=== PATIENT | female | born 1990 | race Caucasian/White ===

== ENCOUNTER 2021-07-22 05:15 | Inpatient (IN) | payer OTHER, SELFPAY ==
[2021-07-22] VITALS (174 sets, daily range): BP systolic 39–163; BP diastolic 24–92; PULSE 34–120; RESP 16–18; TEMP 36.2–37.1; O2SAT 92–100; BMI 29.5
--- NOTE | 2021-07-22 05:15 | LDADM ---
This patient, Osiris Jurado, was admitted to Labor/Delivery/Recovery 108 on 07/22/21 at 05:15. Plans for labor, pain management and were discussed with patient. Patient/family oriented to hospital policies and general routines including ID bracelet, bed and alarms, visiting hours, pain management, procedures, bathroom and other care routines, personal items, smoking policy, room service/diet and guest tray routines, security routines, and visiting hours. Patient/Family are encouraged to report perceived risks to care and to ask questions if they do not understand what they are told or what they should do. See OBIX for further documentation.
[2021-07-22 06:11] LABS: Basophils Percent Auto 0.3 % (0.2-1.2); Eosinophils Percent Auto 0.4 % (0-4.4); Hematocrit 33.2 % (37.0-47.0); Hemoglobin 11.4 g/dL (12.0-15.0); Immature Granulocyte Absolute 0.03 K/mm3 (0.00-0.031); Immature Granulocyte Percent A 0.4 % (0-0.5); Lymphocytes Absolute Auto 1.76 K/mm3 (0.9-3.2); Lymphocytes Percent Auto 23.8 % (18.3-44.2); Mean Corpuscular HGB Conc 34.3 g/dl (32-36); Mean Corpuscular Hemoglobin 32.7 pg (26-34); Mean Corpuscular Volume 95.1 fl (80-100); Mean Platelet Volume 11.3 fl (7.4-10.4); Monocytes Absolute Auto 0.6 K/mm3 (0.1-0.6); Monocytes Percent Auto 8.1 % (2.6-8.5); Platelet Count Result 220 k/mm3 (150-375); Red Blood Count 3.49 M/mm3 (4.2-5.4); Red Cell Distribution Width 14.2 % (11.5-14.5); White Blood Count 7.4 K/mm3 (4.5-10.0)
--- NOTE | 2021-07-22 06:11 | WPDANESEPP ---
Anes - Eval Pre Procedure Procedure: labor epidural Date/Time: 07/22/21 06:11 Surgeon: crispin Pre Op Diagnosis: IOL Patient Data Age: 30 Gender: F Height: Weight: Last Vital Signs Pulse 86 07/22/21 06:01 BP 110/69 07/22/21 06:01 Allergies Allergy/AdvReac Type Severity Reaction Status Date / Time amoxicillin [From Augmentin] Allergy Hives Verified 06/30/21 12:52 clavulanic acid Allergy Hives Verified 06/30/21 12:52 [From Augmentin] levofloxacin [From Levaquin] Allergy Hives Verified 06/30/21 12:52 Penicillins Allergy Hives Verified 06/30/21 12:52 Laboratory Tests 07/22/21 07/22/21 05:54 05:54 WBC Pending RBC Pending Hgb Pending Hct Pending MCV Pending MCH Pending MCHC Pending RDW Pending Plt Count Pending MPV Pending Immature Gran % (Auto) Pending Neut % (Auto) Pending Lymph % (Auto) Pending [place] % (Auto) Pending Eos % (Auto) Pending Baso % (Auto) Pending Lymph # (Auto) Pending [place] # (Auto) Pending Eos # (Auto) Pending Baso # (Auto) Pending Abs Immat Gran (auto) Pending Absolute Neuts (auto) Pending Absolute Nucleated RBC Pending Nucleated RBC % Pending RPR Pending Patient hx anesthesia problems: none Family hx anesthesia problems: none Results Review: All pre-operative results and documents have been reviewed as part of the pre-operative evaluation. [facility] Family History Family History (Updated 06/30/21 @ 12:53 by Alex Izaguirre RN) Other No pertinent family history Social History Social History Smoking status: Never smoker Second hand tobacco smoke exposure: No Substance use: never Spiritual care concerns: No Exam Day of Procedure 07/22/21 06:11
[2021-07-22] MEDS: OXYTOCIN 30 UNITS/NS 500 ML 30 UNITS/500 ML BAG 6 UNITS IV CONT (06:50)
[2021-07-22] MEDS: LACTATED RINGERS 1,000 ML 125 ML IV CONT ×2 (06:50→11:34)
--- NOTE | 2021-07-22 06:55 | WPDOBADMIT ---
Obstetrics - Admit Note Admission Note: record reviewed. Additions to the history and/or subsequent changes in the physical findings follow. 30 y/o G1 at 39 1/7 weeks here for induction of labor. AVSS NST reactive TOCO: rare contractions ABD soft, nontender, gravid, vertex EXT nontender Cervix 3-4/50/-2. AROM with clear fluid. A: IUP at term with favorable cervix. Desires induction of labor. P: Oxytocin. Anticipate .
[2021-07-22 11:17] LABS: Rapid Plasma Reagin Non-Reactive (NonReactive)
--- NOTE | 2021-07-22 11:42 | P.PNAN_ITS ---
Anes - Eval Pre Procedure Date/Time: 07/22/21 11:42 Pre Op Diagnosis: IOL Patient Data Age: 30 Gender: F Height: Weight: Last Vital Signs Temp 98.2 F 07/22/21 11:35 Pulse 66 07/22/21 11:31 BP 114/66 07/22/21 11:31 Allergies Allergy/AdvReac Type Severity Reaction Status Date / Time amoxicillin [From Augmentin] Allergy Hives Verified 06/30/21 12:52 clavulanic acid Allergy Hives Verified 06/30/21 12:52 [From Augmentin] levofloxacin [From Levaquin] Allergy Hives Verified 06/30/21 12:52 Penicillins Allergy Hives Verified 06/30/21 12:52 Laboratory Tests 07/22/21 07/22/21 07/22/21 05:54 05:54 05:54 WBC 7.4 K/mm3 K/mm3 (4.5-10.0) RBC 3.49 M/mm3 L M/mm3 (4.2-5.4) Hgb 11.4 g/dL L g/dL (12.0-15.0) Hct 33.2 % L % (37.0-47.0) MCV 95.1 fl fl (80-100) MCH 32.7 pg pg (26-34) MCHC 34.3 g/dl g/dl (32-36) RDW 14.2 % % (11.5-14.5) Plt Count 220 k/mm3 k/mm3 (150-375) MPV 11.3 fl H fl (7.4-10.4) Immature Gran % (Auto) 0.4 % % (0-0.5) Neut % (Auto) 67.0 % % (45.5-73.1) Lymph % (Auto) 23.8 % % (18.3-44.2) [place] % (Auto) 8.1 % % (2.6-8.5) Eos % (Auto) 0.4 % % (0-4.4) Baso % (Auto) 0.3 % % (0.2-1.2) Lymph # (Auto) 1.76 K/mm3 K/mm3 (0.9-3.2) [place] # (Auto) 0.6 K/mm3 K/mm3 (0.1-0.6) Eos # (Auto) 0.0 K/mm3 K/mm3 (0-0.3) Baso # (Auto) 0.0 K/mm3 K/mm3 (0.0-0.1) Abs Immat Gran (auto) 0.03 K/mm3 K/mm3 (0.00-0.031) Absolute Neuts (auto) 5.0 K/mm3 K/mm3 (1.3-6.7) Absolute Nucleated RBC 0.0 K/mm3 K/mm3 (0.0-0.012) Nucleated RBC % 0.0 % % (0.0-0.2) RPR Non-reactive (NonReactive) Blood Type A Positive Antibody Screen Negative Patient hx anesthesia problems: none Family hx anesthesia problems: none Results Review: All pre-operative results and documents have been reviewed as part of the pre-operative evaluation. [facility] Past Medical History Medical History Overweight (BMI 25.0-29.9) and not yet delivered Family History Family History Other No pertinent family history Social History Social History Smoking status: Never smoker Second hand tobacco smoke exposure: No Substance use: never Spiritual care concerns: No Exam Day of Procedure 07/22/21 11:42 Patient weight: overweight Airway: Mallampati scale class II Neurological: alert and oriented
--- NOTE | 2021-07-22 12:41 | PM.OBPNLAB ---
Pain Control Date/time seen: 07/22/21 12:41 Getting more comfortable with epidural. AVSS NST reactive TOCO: contractions every 2-4 min Cervix 4-5/50/-2. IUPC placed. A: IUP at term. P: Continue labor.
--- NOTE | 2021-07-22 18:30 | PM.OBPRVD ---
OB - Delivery Note Procedure Delivery date: 07/22/21 Procedure: Induction of labor with Induction method: Per Pitocin Protocol Delivery augmentation: Rupture of Membranes Delivery monitor: External FHT, External Uterine and Internal Uterine Route of delivery: Laceration Description: Perineal - 2nd Degree Delivery repair: vicryl (3-0) Specimen: Yes (cord blood) Quantitative Blood Loss (ml): 145 Anesthesia type: Epidural Disposition: PACU Complications: None Narrative: 30 y/o G1 at 39 1/7 weeks gestation who presented to the hospital for induction of labor. Oxytocin was administered intravenously. Amniotomy was performed with return of clear fluid. She received an epidural for pain control. Her labor progressed and her cervix dilated completely. She pushed with good effort and delivered the 's head to the perineum, followed by the body. The nose and mouth were bulb suctioned. After a delay, the cord was clamped and cut. The was handed off the field. Cord blood was collected. The placenta delivered spontaneously and was grossly normal in appearance. The usual 3 vessel cord was noted. A second degree midline perineal laceration was sustained. This was reapproximated using 3 0 Vicryl in the usual layered fashion. Excellent hemostasis resulted as did excellent reapproximation of the normal anatomy. Needle and instrument counts were correct. The patient was taken to recovery room in stable condition. The infant went to the nursery in stable condition. I was present and scrubbed for the entire delivery. [place] Baby Date of : 07/22/21 Time of : 18:11 Weeks of gestation at delivery: 39 gender: Male Weight (pounds): 7 Weight (ounces): 15 presentation: vertex position: Left Occiput Anterior Placenta delivery description: Spontaneous and Normal Configuration Cord Vessel Description: 3 Vessels and Delayed Cord Clamping score one minute: 8 score five minutes: 9
--- NOTE | 2021-07-22 18:32 | PM.OBDSVD ---
DS: Admitting Diagnosis Discharge Date 07/24/21 Admitting Diagnosis IUP at 39 1/7 weeks Favorable cervix DS: Discharge Diagnosis Discharge Diagnosis (1) (normal spontaneous vaginal delivery): Code(s): O80 - Encounter for full-term uncomplicated delivery Status: Acute OB - DS: Summary OB Procedures : None OB Procedures Intrapartum: Spontaneous Vag Delivery OB Procedures: : None DS: Data Data Completed and Pending Labs on day of discharge: Labs from last 24 hours 07/22/21 07/22/21 07/22/21 05:54 05:54 05:54 WBC 7.4 RBC 3.49 L Hgb 11.4 L Hct 33.2 L MCV 95.1 MCH 32.7 MCHC 34.3 RDW 14.2 Plt Count 220 MPV 11.3 H Immature Gran % (Auto) 0.4 Neut % (Auto) 67.0 Lymph % (Auto) 23.8 [place] % (Auto) 8.1 Eos % (Auto) 0.4 Baso % (Auto) 0.3 Lymph # (Auto) 1.76 [place] # (Auto) 0.6 Eos # (Auto) 0.0 Baso # (Auto) 0.0 Abs Immat Gran (auto) 0.03 Absolute Neuts (auto) 5.0 Absolute Nucleated RBC 0.0 Nucleated RBC % 0.0 RPR Non-reactive Blood Type A Positive Antibody Screen Negative Discharge Plan Discharge Attending physician on discharge: Gavin Ribeiro Discharging Clinician: Gavin Ribeiro Patient Disposition: Home, Self-Care Activity: pelvic rest Diet: regular Discharge Instructions: Call or return if temperature above 100.4? F, increased abdominal pain, increased vaginal bleeding or any new problems. Stand Alone Forms: General Discharge Information Follow-up/Referrals: Gavin Ribeiro MD [Physician] - 6 Weeks Discharge Medications: New ibuprofen 600 mg tablet 600 mg PO Q6H PRN (Reason: cramps) Qty: 30 RF: 0 hydrocodone-acetaminophen 5-325 mg tablet 1 tablet PO Q6H PRN (Reason: pain) Qty: 20 RF: 0 Date of admission: 07/22/21 05:15 Primary Care Provider: Jax,Selena Admitting Provider: Gavin Ribeiro Attending physician on admission: Gavin Ribeiro Condition: Stable
[2021-07-22] MEDS: OXYTOCIN 30 UNITS/NS 500 ML 30 UNITS/500 ML BAG 125 UNITS IV CONT (18:51)
[2021-07-22] MEDS: IBUPROFEN 600 MG TABLET PO (19:46)
[2021-07-22] MEDS: ACETAMINOPHEN 325 MG TABLET 650 MG PO (19:46)
[2021-07-22] MEDS: WITCH HAZEL 40 PADS 1 PAD TOPICAL (19:47)
[2021-07-22] MEDS: BENZOCAINE 20% AER SPR (*SP) 56 GM CAN 1 SPRAY TOPICAL (19:47)
[2021-07-23 03:30] VITALS: BP 117/69; PULSE 71; RESP 16; TEMP 36.4
[2021-07-23] MEDS: IBUPROFEN 600 MG TABLET PO ×3 (03:30→20:17)
[2021-07-23 04:19] LABS: Hematocrit 30.4 % (37.0-47.0)
[2021-07-23 07:40] VITALS: BP 109/51; PULSE 73; RESP 16; TEMP 37; O2SAT 100
[2021-07-23] MEDS: MULTIVIT/MIN/PREN/FOL AC/IRON TABLET 1 TAB PO (07:44)
[2021-07-23] MEDS: ACETAMINOPHEN 325 MG TABLET 650 MG PO (07:44)
--- NOTE | 2021-07-23 08:55 | PC.NURSE ---
[id number] [phone] Introductions made and consulted with patient to assess needs related to . Mother led conversation with her experience with feeding baby so far. Mother works well with her infant. Mother has copious breast tissue with edema bilaterally in her areolas. With U and C-hold the nipple hides into the areola. Attempted to reduce edema with reverse pressure. Reviewed good handwashing when working with , breast, nipples and how to protect the nipples with a deep latch. Encouraged understanding the benefits of skin to skin, responding to feeding cues, frequencies of feeding 8-12 times in 24 hours (approximately 2-3 hours), duration of feedings, milk production, intake/output feeding sheet and signs of adequate intake. Discussed stimulating with skin to skin, hand expressing colostrum, touch and talking to infant to encourage eating at the breast. Reviewed positioning and alignment, supporting breast, off-centered (asymmetrical latch) and leading with the chin with big open wide gape. is learning how to open wide but closes mouth around the nipple. Infant latched to the left breast on the nipple with dimpling in football position. was detached and not encouraged to maintain latch. Mother did hand expression several drops of colostrum and it was placed into 's mouth. Nipple care reviewed with optimal latching and positioning. Mother was encouraged with her efforts and will take a bathroom break, drink some coffee and call for assistance to work with latching infant again soon. Resources used to facilitate learning were used from the visual handouts/mom and baby guide. Mother voiced understanding responding to feeding cues, may need to stimulating approximately 2-3 hours from the start of the last feeding, calling for assistance if the does not latch or there discomfort . Reported to primary RN.
--- NOTE | 2021-07-23 11:45 | PC.NURSE ---
[id number] Infant is sleepy and reluctant to latch optimally. BS checked and reported to primary RN. Mother plans to take a shower, then we will attempt baby to breast after skin to skin and feeding cues visualized. Discussed the risks and benefits of hand expressing and pumping due to not latching. Mother voiced understanding to call for assistance. [id number] - is sleepy and reluctant with no feeding cues visualized. Per earlier discussion mother decides to pump for milk production. Obtained 1 ml of colostrum and it was fed to with a syringe to promote feeding infant. placed skin to skin and mother will watch for feeding cues and call for assistance working with to latch. Mother voiced understanding of information.
[2021-07-23 12:02] VITALS: BP 106/62; PULSE 74; RESP 16; TEMP 36.8; O2SAT 97
--- NOTE | 2021-07-23 12:39 | PM.OBPNVD ---
OB - PN: Subj Subjective Date/time seen: 07/23/21 12:39 Narrative: Pain OK. Would like circumcision for son. OB - PN: Obj Data Labs CBC & Chem 7: 07/23/21 03:27 Labs: Laboratory Results - last 24 hr 07/23/21 03:27 Hgb 10.0 L Hct 30.4 L OB - PN A/P Plan Comments: A: PPD#1, doing well. P: Routine care. Reviewed circumcision. Exam Psych: Other: AVSS ABD soft, nontender, fundus firm EXT nontender
[2021-07-23] MEDS: HYDROcodone/acetaminophen (*CRX) 5-325 MG TABLET 1 TAB PO ×3 (13:07→22:48)
--- NOTE | 2021-07-23 15:06 | WPDANLDPN2 ---
Anes-Prog Note L&D Date/Time: 07/23/21 15:06 Comfortable throughout: labor and delivery Neuraxial method: epidural Epidural/Spinal procedure site: clean & non-tender Neuro status: Neuro function grossly intact. Cardiovascular status: normal Respiratory status: normal Airway patency: baseline Mental status: baseline Post-Op hydration status: normal Vital Signs: Last Vital Signs Temp 98.3 F 07/23/21 12:02 Pulse 74 07/23/21 12:02 Resp 16 07/23/21 12:02 BP 106/62 07/23/21 12:02 Pulse Ox 97 07/23/21 12:02 Pain score (VAS): 0 I/O: Intake & Output 07/22/21 07/23/21 07/23/21 23:59 07:59 15:59 Intake Total 2400 240 Output Total 600 Balance 1800 240 Post-procedural complaints: none Patient feedback: Patient satisfied with anesthetic care.
--- NOTE | 2021-07-23 15:48 | PC.NURSE ---
1425 - Mother is skin to skin with . Reported to primary RN.
[2021-07-23 16:00] VITALS: BP 118/64; PULSE 82; RESP 16; TEMP 37; O2SAT 99
[2021-07-23 20:00] VITALS: BP 123/75; PULSE 78; RESP 16; TEMP 36.6; O2SAT 98
[2021-07-24] MEDS: IBUPROFEN 600 MG TABLET PO ×2 (02:04→08:18)
--- NOTE | 2021-07-24 02:10 | PM.OBPNVD ---
OB - PN: Subj Subjective Date/time seen: 07/24/21 02:10 Narrative: Pain OK. Would like to go home. OB - PN: Obj Data Labs CBC & Chem 7: 07/23/21 03:27 Labs: Laboratory Results - last 24 hr 07/23/21 03:27 Hgb 10.0 L Hct 30.4 L OB - PN A/P Plan Comments: A: PPD#2, doing well. P: Home to f/u 6 weeks. Exam Psych: Other: AVSS ABD soft, nontender, fundus firm EXT nontender
[2021-07-24] MEDS: HYDROcodone/acetaminophen (*CRX) 5-325 MG TABLET 1 TAB PO (05:02)
[2021-07-24 08:00] VITALS: BP 115/61; PULSE 75; RESP 18; TEMP 36.8; O2SAT 97
[2021-07-24] MEDS: MULTIVIT/MIN/PREN/FOL AC/IRON TABLET 1 TAB PO (08:18)
--- NOTE | 2021-07-24 10:47 | PC.NURSE ---
Patient viewed the discharge video Mother & Baby Care, The First Two Weeks . Patient was given the opportunity and encouraged to ask questions. Patient verbalized understanding of information shared and has been given the mother/baby guide for home reference.
[2021-07-26 10:06] VITALS: BP 116/68; PULSE 72; RESP 16; TEMP 36.6; O2SAT 100
== END 2021-07-24 15:03 | disposition home or self-care (01) | DRG 807 ==
LOC: ANHLDR 18:34 → ANHOB2 21:35
PROVIDERS: Admitting Provider Obstetrics & Gynecology; PCP Physician Assistant; Visit Provider Obstetrics & Gynecology
DX: O36.8330 Maternal care for abnormalities of the fetal heart rate or rhythm, third trimester, not applicable or unspecified (principal); Z37.0 Single live birth; Z3A.39 39 weeks gestation of pregnancy; O70.1 Second degree perineal laceration during delivery
CPT/HCPCS: 36415; 85014; 85018; 85025; 86592; 86850; 86900; 86901; A9270; J2590; J2795; J7120

== ENCOUNTER 2022-02-21 11:11 | Emergency (ER) | payer SELFPAY ==
--- NOTE | 2022-02-21 11:22 | ED.URI ---
HPI - URI/Sore Throat General Chief Complaint: Upper Respiratory Infection Stated Complaint: sore throat, fatigue Time Seen by Provider: 02/21/22 11:22 Source: patient, RN notes reviewed and old records reviewed Mode of arrival: ambulatory Limitations: no limitations History of Present Illness HPI Narrative: 31-year-old female who presents to [facility] with complaints of sore throat and fatigue for the past 1 day, patient is 10 weeks . Patient reports that she has had some sinus drainage and has noted fevers up to 100F and has taken Tylenol for her complaints. Patient states that she does have history of strep throat. MD elicited complaint: cough and sore throat Pertinent past history: other (strep) Onset (ago): day(s) (1) Pain scale (0-10): 6 Treatments prior to arrival: acetaminophen Related Data Home Medications Medication Instructions Recorded Confirmed sertraline 50 mg tablet mg 02/21/22 Allergies Allergy/AdvReac Type Severity Reaction Status Date / Time amoxicillin [From Augmentin] Allergy Hives Verified 06/30/21 12:52 clavulanic acid Allergy Hives Verified 06/30/21 12:52 [From Augmentin] levofloxacin [From Levaquin] Allergy Hives Verified 06/30/21 12:52 Penicillins Allergy Hives Verified 06/30/21 12:52 Review of Systems Review of Systems: CONSTITUTIONAL: Denies malaise, chills, sweats, positive for low grade fever. EYES: Denies visual changes, redness, or discharge. ENT: Reports rhinorrhea, congestion, no sinus pain, no otalgia, does report sore throat. CARDIOVASCULAR: Denies chest pain, palpitations, or edema. RESPIRATORY: Reports mild cough.? Denies dyspnea. GASTROINTESTINAL: Denies abdominal pain, nausea, vomiting, diarrhea SKIN: Denies rash or itching. MUSCULOSKELETAL: Denies myalgia. NEUROLOGIC: Denies headache. All systems reviewed & are unremarkable except as noted in HPI and below PMFSH Past Medical History Medical History (Updated 02/22/22 @ 07:44 by Nati Cabral NP) COVID-19 05/2020 Kidney stone Overweight (BMI 25.0-29.9) and not yet delivered Right hand fracture UTI (urinary tract infection) Surgical History Surgical History (Updated 02/22/22 @ 07:39 by Nati Cabral NP) H/O right knee surgery meniscus repair [place] teeth extracted Family History Family History Other No pertinent family history Social History Social History (Updated 02/22/22 @ 07:37 by Nati Cabral NP) Smoking status: Never smoker Second hand tobacco smoke exposure: No Substance use: never Living arrangements: with family Gender identity (if verbalized by the patient): Female Spiritual care concerns: No Comments At time of signature, agree with nursing past medical, surgical, social and family history. There is no relevant family history pertinent to the presenting complaint Exam Narrative: GENERAL: Well-appearing, well-nourished, and in no acute distress. HEAD: Normocephalic EYES: PERRLA, conjunctivae clear ENT: Nares clear, turbinates edematous and erythematous, clear discharge. Mucous membranes moist. TM pearly rosales with dull light reflex bilaterally; no tragal tenderness. Oropharynx erythematous without lesions. Tonsils mildly enlarged and without exudate, no drooling, no hoarseness, no trismus, uvula midline. NECK: Supple. No lymphadenopathy CHEST: Clear to auscultation, breath sounds equal. No wheezing, rhonchi, rales, or stridor. No respiratory distress, speaks in full sentences. HEART: Regular rate and rhythm. No murmur heard. SKIN: Warm, dry, no rash. NEURO: Alert and oriented x3. PSYCH: Normal mood and affect Course Course Emergency Course: Patient is aware of diagnosis, understands and agrees to treatment plan.? Anticipatory guidance given.? Patient agrees to follow-up as directed and is aware of reasons to seek care at the emergency department.
[2022-02-21 11:24] VITALS: BP 107/65; PULSE 81; RESP 16; TEMP 36.4; O2SAT 100
== END 2022-02-21 11:51 | disposition home or self-care (01) ==
PROVIDERS: Emergency Provider Registered Nurse; PCP Physician Assistant
DX: O99.511 Diseases of the respiratory system complicating pregnancy, first trimester (principal); Z3A.10 10 weeks gestation of pregnancy; J06.9 Acute upper respiratory infection, unspecified; J02.9 Acute pharyngitis, unspecified; Z86.16 Personal history of COVID-19
CPT/HCPCS: 87081; 87880; 99213; G0463

== ENCOUNTER 2022-09-13 04:05 | Inpatient (IN) | payer SELFPAY ==
[2022-09-13] VITALS (130 sets, daily range): BP systolic 62–123; BP diastolic 31–82; PULSE 60–104; RESP 16–18; TEMP 36.4–36.8; O2SAT 80–100; BMI 28.0
[2022-09-13 04:45] LABS: Basophils Percent Auto 0.2 % (0.2-1.2); Eosinophils Percent Auto 0.4 % (0-4.4); Hemoglobin 9.8 g/dL (12.0-15.0); Immature Granulocyte Absolute 0.04 K/mm3 (0.00-0.031); Immature Granulocyte Percent A 0.4 % (0-0.5); Lymphocytes Absolute Auto 2.06 K/mm3 (0.9-3.2); Lymphocytes Percent Auto 22.2 % (18.3-44.2); Mean Corpuscular HGB Conc 32.7 g/dl (32-36); Mean Corpuscular Hemoglobin 29.3 pg (26-34); Mean Corpuscular Volume 89.6 fl (80-100); Mean Platelet Volume 10.8 fl (7.4-10.4); Monocytes Absolute Auto 0.7 K/mm3 (0.1-0.6); Monocytes Percent Auto 7.1 % (2.6-8.5); Neutrophils Absolute Auto 6.5 K/mm3 (1.3-6.7); Neutrophils Percent Auto 69.7 % (45.5-73.1); Platelet Count Result 249 k/mm3 (150-375); Red Blood Count 3.35 M/mm3 (4.2-5.4); Red Cell Distribution Width 15.7 % (11.5-14.5); White Blood Count 9.3 K/mm3 (4.5-10.0)
--- NOTE | 2022-09-13 04:47 | LDADM ---
This patient, Osiris Jurado, was admitted to Labor/Delivery/Recovery 106 on 09/13/22 at 04:05. Plans for labor, pain management and were discussed with patient. Patient/family oriented to hospital policies and general routines including ID bracelet, bed and alarms, visiting hours, pain management, procedures, bathroom and other care routines, personal items, smoking policy, room service/diet and guest tray routines, security routines, and visiting hours. Patient/Family are encouraged to report perceived risks to care and to ask questions if they do not understand what they are told or what they should do. See OBIX for further documentation.
[2022-09-13] MEDS: LACTATED RINGERS 1,000 ML 125 ML IV CONT ×4 (04:53→08:25)
--- NOTE | 2022-09-13 05:33 | WPDANESEPP ---
Anes - Eval Pre Procedure Procedure: labor epidural Date/Time: 09/13/22 05:33 Surgeon: crispin Preop Diagnosis: pain during labor Pre Op Diagnosis: Labor Patient Data Age: 31 Gender: F Height: 1.75 m Weight: 86 kg Last Vital Signs Pulse 79 09/13/22 05:15 BP 106/62 09/13/22 05:15 O2 Del Method Room Air 09/13/22 04:45 Allergies Allergy/AdvReac Type Severity Reaction Status Date / Time amoxicillin [From Augmentin] Allergy Hives Verified 08/22/22 15:27 clavulanic acid Allergy Hives Verified 08/22/22 15:27 [From Augmentin] levofloxacin [From Levaquin] Allergy Hives Verified 08/22/22 15:27 Penicillins Allergy Hives Verified 08/22/22 15:27 Home Medications Medication Instructions Recorded Confirmed Type prenat.vits,steph,pla-[id number]-vxquc 1 tablet PO DAILY 08/22/22 08/22/22 History sertraline 50 mg tablet 50 mg PO DAILY 08/22/22 08/22/22 History Laboratory Tests 09/13/22 04:32 WBC 9.3 K/mm3 (4.5-10.0) RBC 3.35 L M/mm3 (4.2-5.4) Hgb 9.8 L g/dL (12.0-15.0) Hct 30.0 L % (37.0-47.0) MCV 89.6 fl (80-100) MCH 29.3 pg (26-34) MCHC 32.7 g/dl (32-36) RDW 15.7 H % (11.5-14.5) Plt Count 249 k/mm3 (150-375) MPV 10.8 H fl (7.4-10.4) Immature Gran % (Auto) 0.4 % (0-0.5) Neut % (Auto) 69.7 % (45.5-73.1) Lymph % (Auto) 22.2 % (18.3-44.2) [place] % (Auto) 7.1 % (2.6-8.5) Eos % (Auto) 0.4 % (0-4.4) Baso % (Auto) 0.2 % (0.2-1.2) Lymph # (Auto) 2.06 K/mm3 (0.9-3.2) [place] # (Auto) 0.7 H K/mm3 (0.1-0.6) Eos # (Auto) 0.0 K/mm3 (0-0.3) Baso # (Auto) 0.0 K/mm3 (0.0-0.1) Abs Immat Gran (auto) 0.04 H K/mm3 (0.00-0.031) Absolute Neuts (auto) 6.5 K/mm3 (1.3-6.7) Absolute Nucleated RBC 0.0 K/mm3 (0.0-0.012) Nucleated RBC % 0.0 % (0.0-0.2) RPR Pending Patient hx anesthesia problems: none Family hx anesthesia problems: none Results Review: All pre-operative results and documents have been reviewed as part of the pre-operative evaluation. [facility] Past Medical History Medical History (Updated 09/13/22 @ 05:34 by Radha Faust CRNA) COVID-19 05/2020 IUP (intrauterine ), incidental Kidney stone Overweight (BMI 25.0-29.9) and not yet delivered Right hand fracture UTI (urinary tract infection) Surgical History Surgical History (Updated 02/22/22 @ 07:39 by Nati Cabral NP) H/O right knee surgery meniscus repair [place] teeth extracted Family History Family History Other No pertinent family history Social History Social History (Updated 02/22/22 @ 07:37 by Nati Cabral NP) Smoking status: Never smoker Second hand tobacco smoke exposure: No Substance use: never Lack of Transportation: No Lack of Food: Never True Current Housing: I Do Not Have Housing Concerned About Future Housing: No Difficulty Paying Gas/Electric Bills: No Difficulty Paying for Meds: No Currently Unemployed: No Education: Bachelor's Degree Difficulty w/ Childcare or Family Care: No Living arrangements: with family Gender identity (if verbalized by the patient): Female Spiritual care concerns: No Exam Day of Procedure 09/13/22 05:33
[2022-09-13] MEDS: ONDANSETRON INJ 4 MG/2 ML VIAL IV PUSH (07:04)
[2022-09-13] MEDS: OXYTOCIN 30 UNITS/NS 500 ML 30 UNITS/500 ML BAG IV CONT (08:27)
--- NOTE | 2022-09-13 12:04 | WPDOBADMIT ---
Obstetrics - Admit Note Admission Note: Late entry from 0845 on 09/13/22 record reviewed. Additions to the history and/or subsequent changes in the physical findings follow. 31 y/o at 38 6/7 here with contractions. Labor diagnosed. She is now comfortable with epidural. GBS neg. AVSS NST reactive TOCO: contractions every 2-3 min ABD soft, nontender, gravid, vertex EXT nontender Cervix 7/80/-1. AROM with clear fluid. Vertex. A: IUP at term with labor. P: Anticipate .
--- NOTE | 2022-09-13 12:06 | P.PCNOB_ITS ---
OB - Delivery Note Procedure Delivery date: 09/13/22 Procedure: NVSD Induction method: None Delivery augmentation: Rupture of Membranes Delivery monitor: External FHT and External Uterine Route of delivery: Laceration Description: Perineal - 2nd Degree Delivery repair: vicryl (3-0) Specimen: Yes (Cord blood) Quantitative Blood Loss (ml): 320 Anesthesia type: Epidural Disposition: PACU Complications: None Narrative: 31 y/o at 38 6/7 weeks gestation who presented to the hospital with contractions. Labor was diagnosed. She received an epidural. Amniotomy was performed with return of clear fluid. Her labor progressed and her cervix dilated completely. She pushed with good effort and delivered the infant's head to the perineum, followed by the body. The nose and mouth were bulb suctioned. After a delay, the cord was clamped and cut. The infant was handed off the field. Cord blood was collected. The placenta delivered spontaneously and was grossly normal in appearance. The usual 3 vessel cord was noted. A second degree midline perineal laceration was sustained. This was reapproximated using 3 0 Vicryl in the usual layered fashion. Excellent hemostasis resulted as did excellent reapproximation of the normal anatomy. Needle and instrument counts were correct. The patient was taken to recovery room in stable condition. The infant went to the nursery in stable condition. I was present and scrubbed for the entire delivery. [place] Baby Date of : 09/13/22 Time of : 11:40 Weeks of gestation at delivery: 38 Infant gender: Male Weight (pounds): 8 Weight (ounces): 12 presentation: vertex position: Left Occiput Anterior Placenta delivery description: Spontaneous and Normal Configuration Cord Vessel Description: 3 Vessels and Delayed Cord Clamping score one minute: 8 score five minutes: 9
[2022-09-13 12:10] LABS: Rapid Plasma Reagin Non-Reactive (NonReactive)
--- NOTE | 2022-09-13 12:11 | PM.OBDSVD ---
DS: Admitting Diagnosis Discharge Date 09/13/22 Admitting Diagnosis IUP at 38 6/7 weeks Labor DS: Discharge Diagnosis Discharge Diagnosis (1) (normal spontaneous vaginal delivery): Code(s): O80 - Encounter for full-term uncomplicated delivery Status: Acute OB - DS: Summary OB Procedures : None OB Procedures Intrapartum: Spontaneous Vag Delivery OB Procedures: : None Time Spent with Patient Time attestation: Total time spent providing and/or coordinating discharge services: DS: Data Data Completed and Pending Labs on day of discharge: Labs from last 24 hours 09/13/22 04:32 WBC 9.3 RBC 3.35 L Hgb 9.8 L Hct 30.0 L MCV 89.6 MCH 29.3 MCHC 32.7 RDW 15.7 H Plt Count 249 MPV 10.8 H Immature Gran % (Auto) 0.4 Neut % (Auto) 69.7 Lymph % (Auto) 22.2 [place] % (Auto) 7.1 Eos % (Auto) 0.4 Baso % (Auto) 0.2 Lymph # (Auto) 2.06 [place] # (Auto) 0.7 H Eos # (Auto) 0.0 Baso # (Auto) 0.0 Abs Immat Gran (auto) 0.04 H Absolute Neuts (auto) 6.5 Absolute Nucleated RBC 0.0 Nucleated RBC % 0.0 RPR Non-reactive Blood Type A Positive Antibody Screen Negative Discharge Plan Discharge Attending physician on discharge: Gavin Ribeiro Consulting providers: Radha Faust; Garfield Caal Discharging Clinician: Gavin Ribeiro Patient Disposition: Home, Self-Care Activity: pelvic rest Diet: regular Discharge Instructions: Call or return if temperature above 100.4? F, increased abdominal pain, increased vaginal bleeding or any new problems. Education: Mom and Baby Guide Given to: Mother Follow-Up: Call your delivering provider's office for an appointment to be seen in: 6 Weeks Mom and baby should come to the [facility] for the follow-up appointment. Appointment Date/Time: September 16, 2022 at 9:00 am What to expect at your follow-up visit: Blood Pressure Check Physical Assessment Call [phone] if you are unable to keep your appointment time. BREAST CARE: * Wear a snug supportive bra. * For engorgement discomfort: Breast Feeding: * Apply warm moist washcloths * Express milk as needed to relieve engorgement * Wear loose clothing * For sore nipples: * Identify correct latch-on * Apply warm moist washcloths before and after nursing * Air dry nipples after nursing * May apply Lansinoh cream to nipples EPISIOTOMY/PERINEAL CARE: * Until bleeding stops, use your robbie bottle after urinating * Change your pad frequently throughout the day * You may take sitz baths several times a day (fill your bathtub with warm water and soak for 20 minutes.) Do NOT bathe in the water * No tub baths until seen by your physician - You may shower ACTIVITY: * Rest as much as possible. * Do not exercise or lift anything heavier than your baby (such as laundry or other children.) * Avoid stairs or driving as much as possible. * Do not put anything into the vagina. No douching, tampons, or sexual activity until seen by physician. NOTIFY PHYSICIAN IF YOU HAVE ANY QUESTIONS OR IF ANY OF THE FOLLOWING SYMPTOMS OCCUR: * If your episiotomy or incision becomes red, swollen, or more painful than what you have experienced in the hospital. * If your vaginal bleeding becomes foul smelling. * If your vaginal bleeding becomes more heavy than a period or if your bleeding changes from pink to bright red. However, you may pass an occasional walnut-sized clot once or twice for the first week . * If you experience a sharp, shooting pain in you calves. * If you discover a hard, reddened area on your breast or if you experience flu-like symptoms. DIET: * Eat regular, well-balanced meals. * Drink plenty of fluids daily. If , drink to thirst. Stand Alone Forms: General Discharge Information Follow-up/Referrals: Gavin Ribeiro MD [Physician] - 6
[2022-09-13] MEDS: OXYTOCIN 30 UNITS/NS 500 ML 30 UNITS/500 ML BAG 125 UNITS IV CONT (12:25)
[2022-09-13] MEDS: BENZOCAINE 20% AER SPR (*SP) 56 GM CAN 1 SPRAY TOPICAL (14:00)
[2022-09-13] MEDS: WITCH HAZEL 40 PADS 1 PAD TOPICAL (14:00)
--- NOTE | 2022-09-13 14:15 | PC.NURSE ---
Patient transferred to post room #279 via [id number]. Support person present. Oriented to unit, room, information board, rooming in, admission packet and security measures. Patient verbalizes understanding.
[2022-09-13] MEDS: POLYSACCHARIDE IRON COMPLEX 150 MG CAPSULE PO (14:47)
[2022-09-13] MEDS: DOCUSATE SODIUM 100 MG CAPSULE PO (14:47)
[2022-09-13] MEDS: IBUPROFEN 600 MG TABLET PO (14:47)
[2022-09-13] MEDS: ACETAMINOPHEN 325 MG TABLET 650 MG PO (18:57)
[2022-09-14] MEDS: IBUPROFEN 600 MG TABLET PO ×4 (02:25→23:38)
[2022-09-14 04:08] VITALS: BP 101/58; PULSE 68; RESP 20; TEMP 36.3; O2SAT 98
[2022-09-14 04:52] LABS: Hematocrit 25.6 % (37.0-47.0); Hemoglobin 8.7 g/dL (12.0-15.0)
[2022-09-14] MEDS: MULTIVIT/MIN/PREN/FOL AC/IRON TABLET 1 TAB PO (09:03)
[2022-09-14] MEDS: DOCUSATE SODIUM 100 MG CAPSULE PO ×2 (09:03→17:01)
[2022-09-14] MEDS: POLYSACCHARIDE IRON COMPLEX 150 MG CAPSULE PO ×2 (09:04→17:01)
[2022-09-14 09:40] VITALS: BP 104/57; PULSE 72; RESP 16; TEMP 36.9; O2SAT 99
--- NOTE | 2022-09-14 10:43 | PC.NURSE ---
[id number] Reintroductions were made as this is a coworkers daughter, then consulted with patient to assess needs related to . Mother led the conversation with her?plans to feed?her infant, the?experience so far, and states this is feeding better than her first. Resources provided for inpatient with name written on the white board. Mother voiced understanding of information and will call if there is a request for assistance.
[2022-09-14] MEDS: ACETAMINOPHEN 325 MG TABLET 650 MG PO ×2 (13:30→20:45)
--- NOTE | 2022-09-14 14:44 | WPDANLDPN2 ---
Anes-Prog Note L&D Date/Time: 09/14/22 14:44 Comfortable throughout: labor and delivery Neuraxial method: epidural Epidural/Spinal procedure site: clean & non-tender Neuro status: Neuro function grossly intact. Cardiovascular status: normal Respiratory status: normal Airway patency: baseline Mental status: baseline Post-Op hydration status: normal Vital Signs: Last Vital Signs Temp 98.5 F 09/14/22 09:40 Pulse 72 09/14/22 09:40 Resp 16 09/14/22 09:40 BP 104/57 L 09/14/22 09:40 Pulse Ox 99 09/14/22 09:40 O2 Del Method Room Air 09/14/22 09:00 Pain score (VAS): 0/10 I/O: Intake & Output 09/13/22 09/14/22 09/14/22 23:59 07:59 15:59 Intake Total 240 240 Balance 240 240 Post-procedural complaints: none Patient feedback: Patient satisfied with anesthetic care.
--- NOTE | 2022-09-14 17:28 | PM.OBPNVD ---
OB - PN: Subj Subjective Date/time seen: 09/14/22 17:28 Narrative: Pain OK. Would like circumcision for son. OB - PN: Obj Data Labs 09/14/22 04:02 Labs: Laboratory Results - last 24 hr 09/14/22 04:02 Hgb 8.7 L Hct 25.6 L OB - PN A/P Plan Comments: A: PPD#1, doing well. P: Routine care. Reviewed circ. Exam Psych: Other: AVSS ABD soft, nontender, fundus firm EXT nontender
[2022-09-14 20:40] VITALS: BP 109/58; PULSE 75; RESP 20; TEMP 36.6; O2SAT 100
--- NOTE | 2022-09-15 07:23 | PM.OBPNVD ---
OB - PN: Subj Subjective Date/time seen: 09/15/22 07:23 Narrative: Pain OK. Would like to go home. OB - PN: Obj Data Labs 09/14/22 04:02 OB - PN A/P Plan Comments: A: PPD#2, doing well. P: Home to f/u 6 weeks. Exam Psych: Other: AVSS ABD soft, nontender, fundus firm EXT nontender
[2022-09-15 07:45] VITALS: BP 112/64; PULSE 64; RESP 18; TEMP 36.9; O2SAT 98
[2022-09-15] MEDS: POLYSACCHARIDE IRON COMPLEX 150 MG CAPSULE PO (09:40)
[2022-09-15] MEDS: DOCUSATE SODIUM 100 MG CAPSULE PO (09:40)
[2022-09-15] MEDS: MULTIVIT/MIN/PREN/FOL AC/IRON TABLET 1 TAB PO (09:40)
[2022-09-16 09:28] VITALS: BP 103/63; PULSE 72; RESP 18; TEMP 37.4; O2SAT 98
== END 2022-09-15 11:20 | disposition home or self-care (01) | DRG 560 ==
LOC: ANHLDR 12:12 → ANHOB2 14:21
PROVIDERS: Admitting Provider Obstetrics & Gynecology; PCP Physician Assistant; Visit Provider Obstetrics & Gynecology
DX: O70.1 Second degree perineal laceration during delivery (principal); Z37.0 Single live birth; Z3A.38 38 weeks gestation of pregnancy
CPT/HCPCS: 36415; 84112; 85014; 85018; 85025; 86592; 86850; 86900; 86901; A9270; J2405; J2590; J2795; J7120

== ENCOUNTER 2024-06-14 13:43 | Emergency (ER) | payer SELFPAY ==
--- NOTE | ~2024-06-14 | US_ITS ---
EXAMINATION: US OB <=14 wk fetus w TV DATE: 06/14/2024 15:32 INDICATION: Vaginal spotting during first trimester . TECHNIQUE: Real-time pelvic ultrasound utilizing both a transvaginal and transabdominal probe was pe rformed. The interpreting radiologist was not present for the study. COMPARISON: None. FINDINGS: The uterus measures 11.5 x 7.1 x 8.7 cm. There is an intrauterine gestational sac. A yolk sac and fe ish pole are identified. The crown rump length measures 3.2 cm, which correlates with an estimated ge stational age of 10 weeks and 1 days. heart motion is identified measuring 166 beats per minute (bpm) by M-mode Doppler. The right ovary measures 2.6 x 2.6 x 2.4 cm. The left ovary measures 3.6 x 2.6 x 3.2 cm. 1.4 cm anech oic left ovarian cyst/follicle. Vascular flow identified in both ovaries on color Doppler. There is n o free fluid in the pelvis. IMPRESSION: 1. Single living fetus with heart rate of 166 bpm. 2. Gestational age by ultrasound of 10 weeks 1 day(s) +/- 6 day(s) with ultrasound estimated date of delivery (MIGUEL) of 01/09/2025. Reviewed, dictated and finalized at location A. [facility] IMPRESSION: 1. Single living fetus with heart rate of 166 bpm. 2. Gestational age by ultrasound of 10 weeks 1 day(s) +/- 6 day(s) with ultras ound estimated date of delivery (MIGUEL) of 01/09/2025.
[2024-06-14 13:52] VITALS: BP 128/76; PULSE 97; RESP 16; TEMP 36.6; O2SAT 100
--- NOTE | 2024-06-14 14:44 | ED_ITS ---
HPI - Female Genitourinary General Chief complaint: Vaginal Bleeding Stated complaint: vag bleed Time Seen by Provider: 06/14/24 18:06 Focused HPI: 33-year-old female who is , currently 9 weeks and 5 days presents to the emergency department for vaginal bleeding in . Patient states this morning she noticed blood when wiping. She attempted to contact her OBGYN, Dr. Ribeiro, however the office and close early and was advised to come to the ED. She states the bleeding has since stopped. She reports that lower abdominal pressure but no cramping or pain. No nausea or vomiting. States she had a fever few days ago due to an unrelated URI illness which that has since resolved. Denies vaginal discharge or concerns for STDs. No dysuria or hematuria. GENERAL: Well-appearing, well-nourished, and in no acute distress. HEAD: Normocephalic, atraumatic. CHEST: Clear to auscultation. ?No respiratory distress. HEART: Regular rate and rhythm.? NEURO: ?Alert and oriented x3. Patient screened in triage and initial orders placed.? ?Additional care and disposition to be based upon?diagnostic testing and treatment. History of Present Illness HPI Narrative: Agree with the above HPI. Related Data Home Medications ?Medication ?Instructions ?Recorded ?Confirmed ?Last Taken ?Type prenat.vits,steph,xos-fhyo-mbwms 1 tablet PO DAILY 08/22/22 08/22/22 08/21/22 19:00 History sertraline 50 mg tablet 50 mg PO DAILY 08/22/22 08/22/22 08/22/22 08:00 History Allergies Allergy/AdvReac Type Severity Reaction Status Date / Time amoxicillin (From Augmentin) Allergy Hives Verified 08/22/22 15:27 clavulanic acid (From Allergy Hives Verified 08/22/22 15:27 Augmentin) levofloxacin (From Levaquin) Allergy Hives Verified 08/22/22 15:27 Penicillins Allergy Hives Verified 08/22/22 15:27 Review of Systems 2 Review of Systems: All systems reviewed & are unremarkable except as noted in HPI and below PMFSH Past Medical History Medical History IUP (intrauterine ), incidental UTI (urinary tract infection) Kidney stone COVID-19 05/2020 Right hand fracture (normal spontaneous vaginal delivery) Overweight (BMI 25.0-29.9) and not yet delivered Surgical History Surgical History [place] teeth extracted H/O right knee surgery meniscus repair Family History Family History Other No pertinent family history Social History Social History Smoking status: Never smoker Second hand tobacco smoke exposure: No Substance use: never Lack of Transportation: No Lack of Food: Never True Current Housing: I Do Not Have Housing Concerned About Future Housing: No Difficulty Paying Gas/Electric Bills: No Difficulty Paying for Meds: No Currently Unemployed: No Education: Bachelor's Degree Difficulty w/ Childcare or Family Care: No Living arrangements: with family Gender identity (if verbalized by the patient): Female Spiritual care concerns: No Exam 2 Narrative: GENERAL: Well-appearing, well-nourished, and in no acute distress. HEAD: Normocephalic, atraumatic. EYES: EOMI. ENT: Nares clear, no rhinorrhea or epistaxis. Mucous membranes moist. NECK: Supple. CHEST: Clear to auscultation. No respiratory distress. HEART: Regular rate and rhythm. No murmur heard. Normal peripheral pulses. ABDOMEN: Soft, nontender, nondistended, normal active bowel sounds. No rebound, guarding or rigidity. No CVA tenderness : Deferred EXTREMITIES: Normal range of motion. No edema. SKIN: Warm, dry, no rash. NEURO: No focal deficits. Alert and oriented x3 Course Vital Signs Vital signs: Vital Signs Temperature 97.8 F 06/14/24 13:52 Pulse Rate 97 06/14/24 13:52 Respiratory Rate 16 06/14/24 13:52 Blood Pressure 128/76 06/14/24 13:52 Pulse Oximetry 100 06/14/24 13:52 Temperature 97.9 F 06/14/24 16:14 Pulse Rate 85 06/14/24 16:14 Respiratory Rate 18 06/14/24 16:14 Blood Pressure 127/79 06/14/24 16:14 Pulse Oximetry 100 06/14/24 16:14 MDM - Female Genitourinary MDM Narrative Medical decision making narrative: 83-year-old female who is , approximately 9 weeks and 5 days presents to the ED for vaginal spotting in . At the time my evaluation the patient's bleeding resolved. Vitals are stable. Abdomen is soft and nontender. Lab work without leukocytosis or anemia. Chemistries are unremarkable. UA without UTI or bacteria. Blood type A positive, RhoGAM not required. Beta HCG 149,730. Ultrasound shows a single living fetus with heart rate of 166 ppm and gestational age by ultrasound of 10 weeks and 1 day +/-6 days with ultrasound estimated date of delivery of 01/09/2025. Patient updated on results. She deferred a pelvic exam given bleeding has resolved. Advised her to have follow-up beta HCG checked in 48 hours. She has an appointment with her OBGYN on Monday which I encouraged her to attend. Return precautions discussed. She is agreeable with the plan verbalized understanding. Discharged in stable condition. Lab Data 06/14/24 16:14 06/14/24 16:14 Labs: Lab Results 06/14/24 06/14/24 Range/Units 16:14 17:48 WBC 4.8 (4.5-10.0) K/mm3 RBC 4.27 (4.2-5.4) M/mm3 Hgb 14.0 D (12.0-15.0) g/dL Hct 38.8 (37.0-47.0) % MCV 90.9 (80-100) fl MCH 32.8 (26-34) pg MCHC 36.1 H (32-36) g/dl RDW 13.0 (11.5-14.5) % Plt Count 189 (150-375) k/mm3 MPV 10.4 (7.4-10.4) fl Immature Gran % (Auto) 0.2 (0-0.5) % Neut % (Auto) 55.6 (45.5-73.1) % Lymph % (Auto) 31.7 (18.3-44.2) % [place] % (Auto) 10.6 H (2.6-8.5) % Eos % (Auto) 1.7 (0-4.4) % Baso % (Auto) 0.2 (0.2-1.2) % Lymph # (Auto) 1.53 (0.9-3.2) K/mm3 [place] # (Auto) 0.5 (0.1-0.6) K/mm3 Eos # (Auto) 0.1 (0-0.3) K/mm3 Baso # (Auto) 0.0 (0.0-0.1) K/mm3 Abs Immat Gran (auto) 0.01 (0.00-0.031) K/mm3 Absolute Neuts (auto) 2.7 (1.3-6.7) K/mm3 Absolute Nucleated RBC 0.000 (0.0-0.012) K/mm3 Nucleated RBC % 0.0 (0.0-0.2) % PT 12.9 (11.1-14.7) Seconds INR 0.9 APTT 33.5 (22.3-36.8) Seconds Sodium 138 (137-145) mmol/L Potassium 3.9 (3.4-5.0) mmol/L Chloride 102 (98-107) mmol/L Carbon Dioxide 25 (22-30) mmol/L Anion Gap 11 (4-12) mmol/L BUN 5 L (7-17) mg/dL Creatinine 0.54 L (0.7-1.0) mg/dL Estim Creat Clear Calc 130 ml/min Estimated GFR > 60 (59 - ) Glucose 88 (65-110) mg/dL Calcium 9.5 (8.4-10.2) mg/dL Total Bilirubin 0.3 (0.2-1.3) mg/dL AST 25 (14-36) U/L ALT 22 (6-35) U/L Alkaline Phosphatase 53 (38-126) U/L Total Protein 8.0 (6.3-8.2) g/dL Albumin 4.4 (3.5-5.1) g/dL Beta HCG, Quant 680646.00 mIU/ML Urine Color Yellow (Yellow) Urine Appearance Clear (Clear) Urine pH 6.0 (5.0-9.0) Ur Specific [place] 1.008 (1.001-1.035) Urine Protein Negative (Negative) mg/dL Urine Glucose (UA) Negative (Negative) mg/dL Urine Ketones Trace H (Negative) mg/dL Ur Blood (Man) Negative (Negative) Urine Nitrate Negative (Negative) Urine Bilirubin Negative (Negative) Urine Urobilinogen 0.2 (<2.0) mg/dL Leukocyte Esterase Rfl Negative (Negative) JEWEL/UL Blood Type A Positive Antibody Screen Negative Screen Not Reportable Baby's Blood Type Not Reportable Baby's JANETTE Not Reportable Doses of RhIg Required 0 Discharge Plan Discharge Clinical Impression: Vaginal bleeding during Patient Disposition: Home, Self-Care Condition: Stable Instructions: Antibiotic Form, Threatened Miscarriage (ED) Additional Instructions: Your beta hCG level is 149,730. Please get this redrawn in 48 hours at the lab. Follow-up with your OBGYN your appointment on Monday. Return to the emergency department if you develop increasing bleeding or year saturating more than 1 pad or tampon an hour, you develop abdominal pain, fever, or other concerning symptoms. Continue taking her vitamin. Patient Language: [place] Prescriptions: No Action sertraline 50 mg tablet 50 mg PO DAILY prenat.vits,steph,yft-gfba-liosi Tablet 1 tablet PO DAILY ibuprofen 600 mg tablet 600 mg PO Q6H PRN (Reason: cramps) Qty: 30 0RF Other Ambulatory Orders: Beta HCG Quantitative (Routine) Timeframe: 2 Days Location: Determined by Patient Ordered By: Shelly Miranda Follow-up/Referrals: Jax,BRIAN Walters [Primary Care Provider] -
[2024-06-14 16:14] VITALS: BP 127/79; PULSE 85; RESP 18; TEMP 36.6; O2SAT 100
[2024-06-14 16:22] LABS: Basophils Percent Auto 0.2 % (0.2-1.2); Eosinophils Absolute Auto 0.1 K/mm3 (0-0.3); Eosinophils Percent Auto 1.7 % (0-4.4); Hematocrit 38.8 % (37.0-47.0); Immature Granulocyte Absolute 0.01 K/mm3 (0.00-0.031); Immature Granulocyte Percent A 0.2 % (0-0.5); Lymphocytes Absolute Auto 1.53 K/mm3 (0.9-3.2); Lymphocytes Percent Auto 31.7 % (18.3-44.2); Mean Corpuscular HGB Conc 36.1 g/dl (32-36); Mean Corpuscular Hemoglobin 32.8 pg (26-34); Mean Corpuscular Volume 90.9 fl (80-100); Mean Platelet Volume 10.4 fl (7.4-10.4); Monocytes Absolute Auto 0.5 K/mm3 (0.1-0.6); Monocytes Percent Auto 10.6 % (2.6-8.5); Neutrophils Absolute Auto 2.7 K/mm3 (1.3-6.7); Neutrophils Percent Auto 55.6 % (45.5-73.1); Platelet Count Result 189 k/mm3 (150-375); Red Blood Count 4.27 M/mm3 (4.2-5.4); White Blood Count 4.8 K/mm3 (4.5-10.0)
[2024-06-14 16:33] LABS: Alanine Aminotransferase 22 U/L (6-35); Albumin Level 4.4 g/dL (3.5-5.1); Alkaline Phosphatase 53 U/L (38-126); Anion Gap 11 mmol/L (4-12); Aspartate Amino Transferase 25 U/L (14-36); Bilirubin,Total 0.3 mg/dL (0.2-1.3); Blood Urea Nitrogen 5 mg/dL (7-17); Calcium 9.5 mg/dL (8.4-10.2); Carbon Dioxide 25 mmol/L (22-30); Chloride 102 mmol/L (98-107); Estimated CRCL calculation 130 ml/min; Estimated Glomerular Filt Rate > 60; Glucose 88 mg/dL (65-110); Potassium 3.9 mmol/L (3.4-5.0); Sodium 138 mmol/L (137-145)
[2024-06-14 16:41] LABS: INR 0.9; Prothrombin Time 12.9 Seconds (11.1-14.7)
[2024-06-14 16:42] LABS: Partial Thromboplastin Time 33.5 Seconds (22.3-36.8)
[2024-06-14 18:01] LABS: Add Urine Microscopic? NO; Appearance Urine Clear (Clear); Bilirubin Urine Negative (Negative); Blood Urine Negative (Negative); Color Urine Yellow (Yellow); Glucose Urine UA Negative (Negative); Ketones Urine Trace mg/dL (Negative); Leukocyte Esterase Ur Negative LEU/UL (Negative); Nitrate Urine Negative (Negative); Protein Urine Negative (Negative); Specific Grav Ur 1.008 (1.001-1.035); Urobilinogen Urine 0.2 mg/dL (<2.0)
== END 2024-06-14 18:27 | disposition home or self-care (01) ==
LOC: ANHED 18:17
PROVIDERS: Emergency Provider Physician Assistant; PCP Physician Assistant
DX: O20.9 Hemorrhage in early pregnancy, unspecified (principal); O99.281 Endocrine, nutritional and metabolic diseases complicating pregnancy, first trimester; E66.3 Overweight; Z87.440 Personal history of urinary (tract) infections; Z87.442 Personal history of urinary calculi; Z86.16 Personal history of COVID-19; Z3A.09 9 weeks gestation of pregnancy; Z79.899 Other long term (current) drug therapy
CPT/HCPCS: 36415; 76801; 76817; 80053; 81003; 84702; 85025; 85461; 85610; 85730; 86850; 86900; 86901; 99284

== ENCOUNTER 2025-01-07 09:13 | Inpatient (IN) | payer SELFPAY ==
[2025-01-07] VITALS (152 sets, daily range): BP systolic 85–119; BP diastolic 45–78; PULSE 62–130; RESP 14; TEMP 36.2–36.6; O2SAT 91–100; BMI 29.6
[2025-01-07 09:44] LABS: Hematocrit 34.1 % (37.0-47.0); Hemoglobin 11.8 g/dL (12.0-15.0); Immature Granulocyte Percent A 0.4 % (0-0.5); Lymphocytes Absolute Auto 1.67 K/mm3 (0.9-3.2); Mean Corpuscular HGB Conc 34.6 g/dl (32-36); Mean Corpuscular Hemoglobin 33.6 pg (26-34); Mean Corpuscular Volume 97.2 fl (80-100); Nucleated Red Blood Cells Absolute Auto 0.000 K/mm3 (0.0-0.012); Nucleated Red Blood Cells Perc 0.0 % (0.0-0.2); Platelet Count Result 172 k/mm3 (150-375); Red Blood Count 3.51 M/mm3 (4.2-5.4); White Blood Count 7.6 K/mm3 (4.5-10.0)
--- NOTE | 2025-01-07 09:46 | LDADM ---
This patient, Osiris Jurado, was admitted to Labor/Delivery/Recovery 107 on 01/07/25 at 09:13. Plans for labor, pain management and were discussed with patient. Patient/family oriented to hospital policies and general routines including ID bracelet, bed and alarms, visiting hours, pain management, procedures, bathroom and other care routines, personal items, smoking policy, room service/diet and guest tray routines, security routines, and visiting hours. Patient/Family are encouraged to report perceived risks to care and to ask questions if they do not understand what they are told or what they should do. See OBIX for further documentation.
[2025-01-07] MEDS: OXYTOCIN 30 UNITS/NS 500 ML 30 UNITS/500 ML BAG IV CONT (09:50)
[2025-01-07] MEDS: LACTATED RINGERS 1,000 ML 125 ML IV CONT ×2 (09:50→13:02)
[2025-01-07 10:32] LABS: Syphilis IgG/IgM Antibody Non-Reactive (Nonreactive)
--- NOTE | 2025-01-07 13:24 | WPDANESEPPF ---
Anes - Initial Pre Proc Eval Procedure: labor epidural Date/Time: 01/07/25 13:24 Surgeon: Gavin Ribeiro MD Pre Op Diagnosis: labor pain Pre Op Diagnosis: IOL Patient Data Age: 34 Gender: F Height: 1.75 m Weight: 91 kg Last Vital Signs Temp 36.6 C 01/07/25 12:00 Pulse 95 01/07/25 13:23 BP 110/70 01/07/25 13:23 Pulse Ox 100 01/07/25 13:20 O2 Del Method Room Air 01/07/25 09:45 Allergies Allergy/AdvReac Type Severity Reaction Status Date / Time amoxicillin (From Augmentin) Allergy Hives Verified 01/07/25 10:12 clavulanic acid (From Allergy Hives Verified 01/07/25 10:12 Augmentin) levofloxacin (From Levaquin) Allergy Hives Verified 01/07/25 10:12 Penicillins Allergy Hives Verified 01/07/25 10:12 Home Medications ?Medication ?Instructions ?Recorded ?Confirmed ?Type prenat.vits,steph,xfc-lhwn-hpxpb 1 tablet PO DAILY 08/22/22 01/07/25 History Laboratory Tests 01/07/25 09:28 WBC 7.6 K/mm3 (4.5-10.0) RBC 3.51 L M/mm3 (4.2-5.4) Hgb 11.8 L g/dL (12.0-15.0) Hct 34.1 L % (37.0-47.0) MCV 97.2 fl (80-100) MCH 33.6 pg (26-34) MCHC 34.6 g/dl (32-36) RDW 14.6 H % (11.5-14.5) Plt Count 172 k/mm3 (150-375) MPV 10.3 fl (7.4-10.4) Immature Gran % (Auto) 0.4 % (0-0.5) Neut % (Auto) 69.6 % (45.5-73.1) Lymph % (Auto) 22.1 % (18.3-44.2) [place] % (Auto) 7.4 % (2.6-8.5) Eos % (Auto) 0.5 % (0-4.4) Baso % (Auto) 0.0 L % (0.2-1.2) Lymph # (Auto) 1.67 K/mm3 (0.9-3.2) [place] # (Auto) 0.6 K/mm3 (0.1-0.6) Eos # (Auto) 0.0 K/mm3 (0-0.3) Baso # (Auto) 0.0 K/mm3 (0.0-0.1) Abs Immat Gran (auto) 0.03 K/mm3 (0.00-0.031) Absolute Neuts (auto) 5.3 K/mm3 (1.3-6.7) Absolute Nucleated RBC 0.000 K/mm3 (0.0-0.012) Nucleated RBC % 0.0 % (0.0-0.2) Syphilis IgG/IgM Ab Non-reactive (Nonreactive) Blood Type A Positive Antibody Screen Negative Patient hx anesthesia problems: none Family hx anesthesia problems: none Results Review: All pre-operative results and documents have been reviewed as part of the pre-operative evaluation. [facility] Past Medical History Medical History IUP (intrauterine ), incidental UTI (urinary tract infection) Kidney stone COVID-19 05/2020 Right hand fracture (normal spontaneous vaginal delivery) Overweight (BMI 25.0-29.9) and not yet delivered Surgical History Surgical History [place] teeth extracted H/O right knee surgery meniscus repair Family History Family History Father Heart disease Grandparent Acute myocardial infarction Other No pertinent family history Social History Social History Smoking status: Never smoker Second hand tobacco smoke exposure: No Substance use: never Lack of Transportation: No Lack of Food: Never True Current Housing: I Have Housing Concerned About Future Housing: No Difficulty Paying Gas/Electric Bills: No Difficulty Paying for Meds: No Currently Unemployed: No Education: Bachelor's Degree Difficulty w/ Childcare or Family Care: No Living arrangements: with family Gender identity (if verbalized by the patient): Female Spiritual care concerns: No Anes - Eval Final PreProcedure Day of Procedure 01/07/25 13:24 Patient weight: overweight ASA classification: II Anesthetic plan: proceed Anesthesia type and monitoring: regional epidural and standard monitoring Results Review: All pre-operative results and documents have been reviewed as part of the pre-operative evaluation. Informed Consent: The patient's anesthetic plan and its attendant risks and benefits were discussed with the patient/family/POA. Questions were solicited and answers provided to the satisfaction of the patient/family/POA.
--- NOTE | 2025-01-07 17:06 | PM.IMHP ---
H&P: HPI History of Present Illness Date/Time: 01/07/25 10:20 Chief Complaint: Here for labor induction Narrative: 34 y/o at 39 1/7 weeks here for induction of labor. GBS neg. essentially uncomplicated. Review of Systems Review of Systems: All systems reviewed & are unremarkable except as noted in HPI and below PMFSH Past Medical History Medical History IUP (intrauterine ), incidental UTI (urinary tract infection) Kidney stone COVID-19 05/2020 Right hand fracture (normal spontaneous vaginal delivery) Overweight (BMI 25.0-29.9) and not yet delivered Surgical History Surgical History [place] teeth extracted H/O right knee surgery meniscus repair Family History Family History Father Heart disease Grandparent Acute myocardial infarction Other No pertinent family history Social History Social History Smoking status: Never smoker Second hand tobacco smoke exposure: No Substance use: never Lack of Transportation: No Lack of Food: Never True Current Housing: I Have Housing Concerned About Future Housing: No Difficulty Paying Gas/Electric Bills: No Difficulty Paying for Meds: No Currently Unemployed: No Education: Bachelor's Degree Difficulty w/ Childcare or Family Care: No Living arrangements: with family Gender identity (if verbalized by the patient): Female Spiritual care concerns: No Meds Home Medications and Allergies Home Medications ?Medication ?Instructions ?Recorded ?Confirmed ?Type prenat.vits,steph,[id number] 1 tablet PO DAILY 08/22/22 01/07/25 History Allergies Allergy/AdvReac Type Severity Reaction Status Date / Time amoxicillin (From Augmentin) Allergy Hives Verified 01/07/25 10:12 clavulanic acid (From Allergy Hives Verified 01/07/25 10:12 Augmentin) levofloxacin (From Levaquin) Allergy Hives Verified 01/07/25 10:12 Penicillins Allergy Hives Verified 01/07/25 10:12 Vital Signs Vital Signs - 24 hr 01/07/25 09:45 01/07/25 09:48 01/07/25 09:52 Temperature Pulse Rate 129 H Blood Pressure 112/66 Pulse Oximetry 99 Oxygen Delivery Room Air 01/07/25 09:57 01/07/25 10:00 01/07/25 10:01 Temperature 97.9 F Pulse Rate 121 H Blood Pressure 110/67 Pulse Oximetry 98 Oxygen Delivery 01/07/25 10:02 01/07/25 10:07 01/07/25 10:12 Temperature Pulse Rate Blood Pressure Pulse Oximetry 99 97 97 Oxygen Delivery 01/07/25 10:22 01/07/25 10:27 01/07/25 10:31 Temperature Pulse Rate 127 H 118 H Blood Pressure 112/77 106/78 Pulse Oximetry 98 98 Oxygen Delivery 01/07/25 10:32 01/07/25 10:37 01/07/25 10:42 Temperature Pulse Rate Blood Pressure Pulse Oximetry 98 97 98 Oxygen Delivery 01/07/25 10:46 01/07/25 10:47 01/07/25 10:52 Temperature Pulse Rate 105 H Blood Pressure 110/62 Pulse Oximetry 99 99 Oxygen Delivery 01/07/25 10:57 01/07/25 11:01 01/07/25 11:02 Temperature Pulse Rate 102 H Blood Pressure 107/68 Pulse Oximetry 99 98 Oxygen Delivery 01/07/25 11:05 01/07/25 11:05 01/07/25 11:08 Temperature Pulse Rate Blood Pressure Pulse Oximetry 97 97 99 Oxygen Delivery 01/07/25 11:13 01/07/25 11:16 01/07/25 11:18 Temperature Pulse Rate 92 Blood Pressure 107/63 Pulse Oximetry 98 99 Oxygen Delivery 01/07/25 11:23 01/07/25 11:28 01/07/25 11:31 Temperature Pulse Rate 95 Blood Pressure 113/71 Pulse Oximetry 99 99 Oxygen Delivery 01/07/25 11:33 01/07/25 11:38 01/07/25 11:46 Temperature Pulse Rate Blood Pressure Pulse Oximetry 98 100 91 Oxygen Delivery 01/07/25 11:51 01/07/25 11:56 01/07/25 12:00 Temperature 97.8 F Pulse Rate Blood Pressure Pulse Oximetry 98 98 Oxygen Delivery 01/07/25 12:01 01/07/25 12:06 01/07/25 12:11 Temperature Pulse Rate 95 Blood Pressure 93/59 L Pulse Oximetry 98 97 98 Oxygen Delivery 01/07/25 12:16 01/07/25 12:21 01/07/25 12:25 Temperature Pulse Rate 92 Blood Pressure 103/52 L Pulse Oximetry 96 97 97 Oxygen Delivery 01/07/25 12:25 01/07/25 12:30 01/07/25 12:31 Temperature Pulse Rate 93 Blood Pressure 112/74 Pulse Oximetry 98 97 Oxygen Delivery 01/07/25 12:35 01/07/25 12:40 01/07/25 12:45 Temperature Pulse Rate Blood Pressure Pulse Oximetry 98 98 99 Oxygen Delivery 01/07/25 12:46 01/07/25 12:50 01/07/25 12:55 Temperature Pulse Rate 82 Blood Pressure 116/71 Pulse Oximetry 99 100 Oxygen Delivery 01/07/25 13:00 01/07/25 13:01 01/07/25 13:05 Temperature Pulse Rate 80 Blood Pressure 119/69 Pulse Oximetry 100 100 Oxygen Delivery 01/07/25 13:10 01/07/25 13:15 01/07/25 13:16 Temperature Pulse Rate 91 Blood Pressure 109/69 Pulse Oximetry 100 100 Oxygen Delivery 01/07/25 13:17 01/07/25 13:19 01/07/25 13:20 Temperature Pulse Rate 87 85 Blood Pressure 104/64 100/54 L Pulse Oximetry 100 Oxygen Delivery 01/07/25 13:21 01/07/25 13:23 01/07/25 13:25 Temperature Pulse Rate 92 95 100 Blood Pressure 112/69 110/70 108/68 Pulse Oximetry 98 Oxygen Delivery 01/07/25 13:28 01/07/25 13:30 01/07/25 13:31 Temperature Pulse Rate 92 96 Blood Pressure 109/67 112/71 Pulse Oximetry 99 Oxygen Delivery 01/07/25 13:34 01/07/25 13:35 01/07/25 13:37 Temperature Pulse Rate 87 97 Blood Pressure 107/69 99/69 L Pulse Oximetry 100 Oxygen Delivery 01/07/25 13:40 01/07/25 13:43 01/07/25 13:45 Temperature Pulse Rate 87 100 Blood Pressure 109/70 109/70 Pulse Oximetry 99 100 Oxygen Delivery 01/07/25 13:46 01/07/25 13:50 01/07/25 13:55 Temperature Pulse Rate 77 89 Blood Pressure 107/66 114/72 Pulse Oximetry 100 100 Oxygen Delivery 01/07/25 14:00 01/07/25 14:01 01/07/25 14:05 Temperature 97.3 F L Pulse Rate 83 Blood Pressure 104/68 Pulse Oximetry 100 99 Oxygen Delivery 01/07/25 14:10 01/07/25 14:15 01/07/25 14:16 Temperature Pulse Rate 76 Blood Pressure 108/65 Pulse Oximetry 100 99 Oxygen Delivery 01/07/25 14:20 01/07/25 14:25 01/07/25 14:30 Temperature Pulse Rate Blood Pressure Pulse Oximetry 100 98 99 Oxygen Delivery 01/07/25 14:31 01/07/25 14:35 01/07/25 14:40 Temperature Pulse Rate 76 Blood Pressure 95/56 L Pulse Oximetry 99 100 Oxygen Delivery 01/07/25 14:45 01/07/25 14:46 01/07/25 14:50 Temperature Pulse Rate 79 Blood Pressure 108/71 Pulse Oximetry 100 100 Oxygen Delivery 01/07/25 14:55 01/07/25 15:00 01/07/25 15:01 Temperature Pulse Rate 90 Blood Pressure 107/67 Pulse Oximetry 99 99 Oxygen Delivery 01/07/25 15:05 01/07/25 15:10 01/07/25 15:15 Temperature Pulse Rate Blood Pressure Pulse Oximetry 99 99 100 Oxygen Delivery 01/07/25 15:16 01/07/25 15:20 01/07/25 15:25 Temperature Pulse Rate 84 Blood Pressure 110/75 Pulse Oximetry 99 99 Oxygen Delivery 01/07/25 15:30 01/07/25 15:31 01/07/25 15:35 Temperature Pulse Rate 70 Blood Pressure 106/59 L Pulse Oximetry 99 99 Oxygen Delivery 01/07/25 15:40 01/07/25 15:45 01/07/25 15:46 Temperature Pulse Rate 73 Blood Pressure 101/59 L Pulse Oximetry 98 99 Oxygen Delivery 01/07/25 15:50 01/07/25 15:55 01/07/25 16:00 Temperature 97.1 F L Pulse Rate Blood Pressure Pulse Oximetry 99 99 99 Oxygen Delivery 01/07/25 16:01 01/07/25 16:05 01/07/25 16:10 Temperature Pulse Rate 80 Blood Pressure 105/58 L Pulse Oximetry 100 99 Oxygen Delivery 01/07/25 16:15 01/07/25 16:16 01/07/25 16:20 Temperature Pulse Rate 83 100 Blood Pressure 88/54 L 100/64 Pulse Oximetry 98 100 Oxygen Delivery 01/07/25 16:25 01/07/25 16:30 01/07/25 16:31 Temperature Pulse Rate 72 Blood Pressure 100/60 Pulse Oximetry 99 100 Oxygen Delivery 01/07/25 16:34 01/07/25 16:39 01/07/25 16:44 Temperature Pulse Rate Blood Pressure Pulse Oximetry 99 98 99 Oxygen Delivery 01/07/25 16:46 01/07/25 16:49 01/07/25 16:54 Temperature Pulse Rate 72 Blood Pressure 109/64 Pulse Oximetry 99 98 Oxygen Delivery 01/07/25 16:59 01/07/25 17:04 Temperature Pulse Rate Blood Pressure Pulse Oximetry 100 100 Oxygen Delivery Exam Const: Other: Well-developed, well-nourished female in no acute distress. Neck: Other: Neck: Trachea midline, no thyromegaly or masses. Resp: Other: Lungs: Normal respiratory effort. Clear to auscultation bilaterally. Cardio: Other: Heart: Regular rate and rhythm with normal S1-S2. GI: Other: ABD: Soft, nontender, nondistended, gravid. No guarding or rebound tenderness. No hepatosplenomegaly. NST reactive. TOCO: irregular contractions. : Other: Cervix: 4/50/-2. AROM with clear fluid. Back/Spine/Pelvis: Other: Back: No CVA tenderness. Skin: Other: Skin: No lesions, rashes or ulcers noted. Extrem: Other: Extremities: nontender with no edema Psych: Other: Mental status grossly normal, with normal mood and affect. H&P: Results Labs Labs: Short CBC 01/07/25 Range/Units 09:28 WBC 7.6 (4.5-10.0) K/mm3 Hgb 11.8 L (12.0-15.0) g/dL Hct 34.1 L (37.0-47.0) % Plt Count 172 (150-375) k/mm3 Assessment and Plan Assessment and plan (1) Term : Code(s): Z34.90 - Encounter for supervision of normal , unspecified, unspecified trimester Status: Acute Assessment and Plan: A: IUP at 39 1/7 weeks with favorable cervix, desiring induction of labor. P: Oxytocin. Anticipate .
--- NOTE | 2025-01-07 17:10 | PM.OBPNLAB ---
Pain Control Date/time seen: 01/07/25 0630 Comments: Comfortable with epidural. Pelvic Exam Dilation (cm): 5 Effacement (%): 50 station: -2 Contractions Contraction frequency: 4 Contraction pattern: Regular Status status: Category l Comments: IUPC placed. Assessment and Plan Pitocin rate (mU/min): 8 Plan: continuous present management
--- NOTE | 2025-01-07 17:11 | PM.OBPNLAB ---
Pain Control Date/time seen: 01/07/25 9130 Comments: Comfortable Pelvic Exam Dilation (cm): 6 Effacement (%): 80 station: -2 Contractions Contraction frequency: 3 Contraction pattern: Regular Status status: Category l Assessment and Plan Plan: continuous present management
[2025-01-07] MEDS: OXYTOCIN 30 UNITS/NS 500 ML 30 UNITS/500 ML BAG 999 UNITS IV CONT (18:19)
--- NOTE | 2025-01-07 18:35 | P.PCNOB_ITS ---
OB - Vaginal Delivery Note Procedure Delivery date: 01/07/25 Events: Elective Induction of Labor Intrapartal Events: Decelerations Delivery augmentation: Rupture of Membranes and Pitocin Delivery monitor: External FHT and Internal Uterine Route of delivery: Episiotomy description: None Laceration Description: Perineal - 1st Degree Delivery repair: vicryl Specimen: No Quantitative Blood Loss (ml): 250 Anesthesia type: Epidural Disposition: Floor Complications: No immediate complications [place] Baby Date of : 01/07/25 Time of : 18:16 Gestational Age by Date: 39 (.1) gender: Male presentation: vertex Placenta delivery description: Expressed Cord Vessel Description: 3 Vessels, Nuchal Cord and Loose score one minute: 9 score five minutes: 9 Narrative: Osiris rapidly progressed from 5 cm to 8cm to completely dilated with significant descensus and had a prolonged heart deceleration lasting approximately 8 minutes down to the 80s. When I arrived heart tones were back up to 110s (pitocin had been held). She pushed for 3 contractions and delivered the head over intact perineum. Nuchal cord was noted but loose. She easily delivered the infant's shoulders and body without complication. Terminal meconium was noted. Infant was immediately placed skin to skin and had spontaneous cry. Delayed cord clamping was performed. The umbilical cord was then doubly clamped and cut by dad. A segment of cord was collected for cord gases. The remaining cord blood was collected for typing. With Pitocin running and gentle downward traction on the cord, the placenta delivered without complication. Bimanual massage was performed and good uterine tone with minimal bleeding was noted she was examined and a small first-degree perineal laceration was identified. The laceration was repaired in the normal manner using 2-0 Vicryl and good hemostasis with good approximation was noted. Bimanual massage was once again performed and good uterine tone with minimal bleeding was noted. Sponge, lap, instrument, and needle counts were correct at the end the procedure. Mom and baby were left bonding in the birthing suite in stable condition.
[2025-01-07] MEDS: OXYTOCIN 30 UNITS/NS 500 ML 30 UNITS/500 ML BAG 125 UNITS IV CONT (18:45)
[2025-01-07] MEDS: IBUPROFEN 600 MG TABLET PO (20:14)
[2025-01-07] MEDS: BENZOCAINE 20% AER SPR (*SP) 56 GM CAN 1 SPRAY TOPICAL (21:32)
[2025-01-07] MEDS: ACETAMINOPHEN 325 MG TABLET 650 MG PO (21:32)
[2025-01-07] MEDS: WITCH HAZEL 40 PADS 1 PAD TOPICAL (21:32)
--- NOTE | 2025-01-07 21:43 | OBPPTRN ---
Patient transferred to post room #281 via wheelchair. Support person present. Oriented to unit, room, information board, rooming in, admission packet and security measures. Patient verbalizes understanding.
[2025-01-08] MEDS: IBUPROFEN 600 MG TABLET PO ×4 (02:15→22:19)
[2025-01-08] MEDS: ACETAMINOPHEN 325 MG TABLET 650 MG PO (03:01)
[2025-01-08] MEDS: HYDROcodone/acetaminophen (*CRX) 5-325 MG TABLET 1 TAB PO ×4 (03:40→22:18)
[2025-01-08 04:59] VITALS: BP 124/75; PULSE 85; RESP 14; TEMP 36.8; O2SAT 100
[2025-01-08 05:40] LABS: Hematocrit 34.1 % (37.0-47.0); Hemoglobin 11.8 g/dL (12.0-15.0); Mean Corpuscular HGB Conc 34.6 g/dl (32-36); Mean Corpuscular Hemoglobin 34.1 pg (26-34); Mean Corpuscular Volume 98.6 fl (80-100); Platelet Count Result 166 k/mm3 (150-375); Red Blood Count 3.46 M/mm3 (4.2-5.4); White Blood Count 12.6 K/mm3 (4.5-10.0)
[2025-01-08 08:00] VITALS: BP 117/70; PULSE 92; RESP 18; TEMP 36.5; O2SAT 98
--- NOTE | 2025-01-08 08:30 | PC.NURSE ---
Mother verbalizes she is able to independently latch with appropriate positioning and alignment. She denies any nipple discomfort and is responsively . Latch observed to be optimal at this time. Mother knows to relatch if there is pain. Infant is currently meeting outcomes for weight, output, jaundice, blood sugar and feeding frequencies of 8-12 times in 24 hours. Mother declines any additional assistance or education at this time. Mother is encouraged to call for assistance if her doesn?t latch, pain with latching, questions or concerns. Mother voiced understanding of information shared along with the mom/baby guide for an additional resource. Reported to the Primary RN.
--- NOTE | 2025-01-08 09:13 | P.PNOB_ITS ---
OB - PN: Subj Subjective Date/time seen: 01/08/25 09:13 Narrative: Pain OK. Would like circumcision for son. Would like to go home. OB - PN: Obj Data Labs 01/08/25 04:52 Labs: Laboratory Results - last 24 hr 01/07/25 01/08/25 09:28 04:52 WBC 7.6 12.6 H RBC 3.51 L 3.46 L Hgb 11.8 L 11.8 L Hct 34.1 L 34.1 L MCV 97.2 98.6 MCH 33.6 34.1 H MCHC 34.6 34.6 RDW 14.6 H 14.5 Plt Count 172 166 MPV 10.3 11.0 H Immature Gran % (Auto) 0.4 Neut % (Auto) 69.6 Lymph % (Auto) 22.1 [place] % (Auto) 7.4 Eos % (Auto) 0.5 Baso % (Auto) 0.0 L Lymph # (Auto) 1.67 [place] # (Auto) 0.6 Eos # (Auto) 0.0 Baso # (Auto) 0.0 Abs Immat Gran (auto) 0.03 Absolute Neuts (auto) 5.3 Absolute Nucleated RBC 0.000 Nucleated RBC % 0.0 Syphilis IgG/IgM Ab Non-reactive Blood Type A Positive Antibody Screen Negative OB - PN A/P Plan day: 1 Comments: A: PPD#1, doing well. P: Reviewed circumcision. Home to f/u 6 weeks. Exam 2 Psych: Other: AVSS ABD soft, nontender, fundus firm EXT nontender
--- NOTE | 2025-01-08 09:14 | P.DS_ITS ---
DS: Admitting Diagnosis Discharge Date 01/08/25 Admitting Diagnosis IUP at 39 1/7 weeks Favorable cervix DS: Discharge Diagnosis Discharge Diagnosis (1) (normal spontaneous vaginal delivery): Code(s): O80 - Encounter for full-term uncomplicated delivery Status: Acute OB - DS: Summary OB Procedures : None OB Procedures Intrapartum: Spontaneous Vag Delivery OB Procedures: : None Peripartum Data Laceration Description: Perineal - 1st Degree Episiotomy description: None Time Spent with Patient Time attestation: Total time spent providing and/or coordinating discharge services: DS: Data Data Completed and Pending Labs on day of discharge: Labs from last 24 hours 01/08/25 01/07/25 04:52 09:28 WBC 12.6 H 7.6 RBC 3.46 L 3.51 L Hgb 11.8 L 11.8 L Hct 34.1 L 34.1 L MCV 98.6 97.2 MCH 34.1 H 33.6 MCHC 34.6 34.6 RDW 14.5 14.6 H Plt Count 166 172 MPV 11.0 H 10.3 Immature Gran % (Auto) 0.4 Neut % (Auto) 69.6 Lymph % (Auto) 22.1 [place] % (Auto) 7.4 Eos % (Auto) 0.5 Baso % (Auto) 0.0 L Lymph # (Auto) 1.67 [place] # (Auto) 0.6 Eos # (Auto) 0.0 Baso # (Auto) 0.0 Abs Immat Gran (auto) 0.03 Absolute Neuts (auto) 5.3 Absolute Nucleated RBC 0.000 Nucleated RBC % 0.0 Syphilis IgG/IgM Ab Non-reactive Blood Type A Positive Antibody Screen Negative Discharge Plan Discharge Attending physician on discharge: Gavin Ribeiro Discharging Clinician: Gavin Ribeiro Patient Disposition: Home Activity: pelvic rest Diet: regular Discharge Instructions: Call or return if temperature above 100.4? F, increased abdominal pain, increased vaginal bleeding or any new problems. Patient Language: Yakut Stand Alone Forms: General Discharge Information Follow-up/Referrals: Gavin Ribeiro MD [Physician, [employer]] - 6 Weeks Discharge Medications: New ibuprofen 600 mg tablet 600 mg PO Q6H PRN (Reason: cramps) Qty: 30 0RF hydrocodone-acetaminophen 5-325 mg tablet 1 tablet PO Q6H PRN (Reason: pain) Qty: 10 0RF Continued prenat.vits,steph,[id number] Tablet 1 tablet PO DAILY Date of admission: 01/07/25 09:13 Primary Care Provider: UNKNOWN,DOCTOR Admitting Provider: Gavin Ribeiro Attending physician on admission: Gavin Ribeiro Condition: Stable
[2025-01-08] MEDS: MULTIVIT/MIN/PREN/FOL AC/IRON TABLET 1 TAB PO (09:45)
[2025-01-08] MEDS: DOCUSATE SODIUM 100 MG CAPSULE PO ×2 (09:45→15:48)
[2025-01-08 11:50] VITALS: BP 117/71; PULSE 98; RESP 16; TEMP 36.6; O2SAT 99
[2025-01-08 19:20] VITALS: BP 114/70; PULSE 72; RESP 16; TEMP 36.7; O2SAT 98
[2025-01-09] MEDS: HYDROcodone/acetaminophen (*CRX) 5-325 MG TABLET 1 TAB PO (04:20)
[2025-01-09] MEDS: IBUPROFEN 600 MG TABLET PO (04:20)
[2025-01-09] MEDS: MULTIVIT/MIN/PREN/FOL AC/IRON TABLET 1 TAB PO (07:54)
[2025-01-09] MEDS: DOCUSATE SODIUM 100 MG CAPSULE PO (07:54)
[2025-01-09 08:00] VITALS: BP 107/62; PULSE 80; RESP 16; TEMP 37.1; O2SAT 97
--- NOTE | 2025-01-09 08:31 | P.PNOB_ITS ---
OB - PN: Subj Subjective Date/time seen: 01/09/25 08:31 Narrative: Pain OK. Would like to go home. OB - PN: Obj Data Labs 01/08/25 04:52 OB - PN A/P Plan day: 2 Comments: A: PPD#2, doing well. P: Home to f/u 6 weeks. Exam 2 Psych: Other: AVSS ABD soft, nontender, fundus firm EXT nontender
--- NOTE | 2025-01-09 11:20 | PC.NURSE ---
Consulted with mother concerning needs and she shared her ability to independently latch infant optimally without pain. Mother is feeding appropriately for growth of and understands stimulating to eat if needed. Infant has had appropriate feedings in the last 24 hours meets the outcomes for weight, output, blood sugar and jaundice at this time. Reinforced understanding of milk production, transition of milk, signs of adequate intake, transition of stool, prevention/relief of engorgement, plugged ducts, mastitis, responsive watching for feeding cues, the different methods of stimulating to breastfeed 1-3 hours after the start of the last feeding, community resources, and when to call a provider using the resource of the feeding sheet along with the mom and baby guide. Mother voiced understanding of the information shared, is confident to continue effectively her infant at home, when to call for assistance, denies any additional assistance or education at this time. Reported to the Primary RN.
[2025-01-10 11:41] VITALS: BP 96/64; PULSE 67; RESP 18; TEMP 36.6; O2SAT 99
== END 2025-01-09 13:35 | disposition home or self-care (01) | DRG 560 ==
LOC: ANHLDR 09:16 → ANHOB2 21:26
PROVIDERS: Obstetrics & Gynecology; Admitting Provider Obstetrics & Gynecology; Visit Provider Obstetrics & Gynecology
DX: O69.81X0 Labor and delivery complicated by cord around neck, without compression, not applicable or unspecified (principal); Z37.0 Single live birth; Z3A.39 39 weeks gestation of pregnancy; O70.0 First degree perineal laceration during delivery; O76 Abnormality in fetal heart rate and rhythm complicating labor and delivery
CPT/HCPCS: 36415; 85025; 85027; 86593; 86850; 86900; 86901; A9270; J2590; J2795; J7120